=== PATIENT | female | born 1980 | race Caucasian/White ===

== ENCOUNTER 2020-06-02 09:44 | Outpatient (CLI) | payer OTHER | END 2020-06-02 15:00 | disposition home or self-care (01) | LOC: LAB 09:44 | DX: J22 Unspecified acute lower respiratory infection (principal); B34.8 Other viral infections of unspecified site; Z20.828 Contact with and (suspected) exposure to other viral communicable diseases ==

== ENCOUNTER 2020-06-18 00:45 | Outpatient (CLI) | payer OTHER | END 2020-06-18 13:40 | disposition home or self-care (01) | LOC: OBS/DEL 00:45 | PROVIDERS: ATTEND Obstetrics & Gynecology | DX: O26.893 Other specified pregnancy related conditions, third trimester (principal); R10.2 Pelvic and perineal pain ==

== ENCOUNTER 2020-07-28 06:53 | Inpatient (IN) | payer OTHER ==
[~2020-07-28] VITALS: Ht 152.4 cm; Wt 3.2 kg
[2020-07-28] MEDS ORDERED: DIALYVITE 800-1 EACH PO (09:25)
[2020-07-28] MEDS ORDERED: PRENATAL TABLE1 EAC1 PO (09:25)
== END 2020-07-31 11:31 | disposition home or self-care (01) | DRG 785 ==
LOC: O/R 06:53 → LDR 06:53 → SURG-SUITE 06:53 → O/R 12:53 → SURG-SUITE 14:14
PROVIDERS: ADMIT Obstetrics & Gynecology; ATTEND Obstetrics & Gynecology
PROC: 0UB70ZZ Excision of Bilateral Fallopian Tubes, Open Approach (ICD-10-PCS; 2020-07-28)
PROC: 4A1HXFZ Monitoring of Products of Conception, Cardiac Rhythm, External Approach (ICD-10-PCS; 2020-07-28)
PROC: 3E033VJ Introduction of Other Hormone into Peripheral Vein, Percutaneous Approach (ICD-10-PCS; 2020-07-28)
PROC: 10D00Z1 Extraction of Products of Conception, Low, Open Approach (ICD-10-PCS; principal; 2020-07-28 13:00)
DX: O82 Encounter for cesarean delivery without indication (principal); O34.211 Maternal care for low transverse scar from previous cesarean delivery; Z09 Encounter for follow-up examination after completed treatment for conditions other than malignant neoplasm; Z86.19 Personal history of other infectious and parasitic diseases; Z3A.38 38 weeks gestation of pregnancy; Z37.0 Single live birth; Z20.828 Contact with and (suspected) exposure to other viral communicable diseases; Z30.2 Encounter for sterilization